=== PATIENT | female | born 2000 | race Caucasian/White ===

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

== ENCOUNTER 2021-09-19 15:11 | Emergency (ER) | payer OTHER, SELFPAY ==
--- NOTE | ~2021-09-19 | XR_ITS ---
EXAMINATION: XR chest 2V DATE: 09/19/2021 15:54 INDICATION: Midsternal two right-sided chest pain TECHNIQUE: PA and lateral views of the chest are obtained. COMPARISON: 09/30/2020 FINDINGS: The lungs are free of acute opacities. There is no pleural effusion or pneumothorax. The ca rdiomediastinal silhouette is normal. The visualized bones and soft tissues are unremarkable. IMPRESSION: 1. No acute cardiopulmonary abnormality. Reviewed, dictated and finalized at location B. OTIC PRACTITIONER
[2021-09-19 15:19] VITALS: BP 120/78; PULSE 100; RESP 16; TEMP 36.6; O2SAT 100
--- NOTE | 2021-09-19 15:23 | ECG_ITS ---
Measurements Intervals [place] Rate: 94 P: 68 [place]: 108 QRS: 78 QRSD: 92 T: 49 QT: 326 QTc: 409 Interpretive Statements SINUS RHYTHM WITH SHORT [place] INTERVAL MINIMAL Q WAVES- ANTEROLAT/INF LEADS BORDERLINE ECG Electronically Signed On 09-19-2021 16:27:38 [employer] by Darien Luna D.O.
[2021-09-19 15:42] LABS: Basophils Absolute Auto 0.1 K/mm3 (0.0-0.1); Basophils Percent Auto 0.6 % (0.2-1.2); Eosinophils Absolute Auto 0.2 K/mm3 (0-0.3); Eosinophils Percent Auto 1.8 % (0-4.4); Hematocrit 41.2 % (37.0-47.0); Hemoglobin 14.6 g/dL (12.0-15.0); Immature Granulocyte Absolute 0.04 K/mm3 (0.00-0.031); Immature Granulocyte Percent A 0.5 % (0-0.5); Lymphocytes Absolute Auto 2.55 K/mm3 (0.9-3.2); Lymphocytes Percent Auto 30.2 % (18.3-44.2); Mean Corpuscular HGB Conc 35.4 g/dl (32-36); Mean Corpuscular Hemoglobin 33.7 pg (26-34); Mean Corpuscular Volume 95.2 fl (80-100); Mean Platelet Volume 9.2 fl (7.4-10.4); Monocytes Absolute Auto 0.6 K/mm3 (0.1-0.6); Neutrophils Absolute Auto 5.1 K/mm3 (1.3-6.7); Neutrophils Percent Auto 59.9 % (45.5-73.1); Platelet Count Result 334 k/mm3 (150-375); Red Blood Count 4.33 M/mm3 (4.2-5.4); Red Cell Distribution Width 12.2 % (11.5-14.5); White Blood Count 8.4 K/mm3 (4.5-10.0)
[2021-09-19 15:57] LABS: Anion Gap 12 mmol/L (8-16); Blood Urea Nitrogen 18 mg/dL (7-17); Calcium 9.7 mg/dL (8.4-10.2); Carbon Dioxide 25 mmol/L (22-30); Chloride 104 mmol/L (98-107); Estimated CRCL calculation 123 ml/min; Estimated Glomerular Filt Rate > 60; Glucose 93 mg/dL (65-110); Potassium 3.8 mmol/L (3.4-5.0); Sodium 141 mmol/L (137-145)
--- NOTE | 2021-09-19 17:02 | ED.GENADULT ---
HPI - General Adult General Chief complaint: Chest Pain Stated complaint: chest pain, almost passing out Time Seen by Provider: 09/19/21 16:18 Source: patient and RN notes reviewed History of Present Illness HPI narrative: Patient is a 21 y/o female complaining of right sided chest pain starting 4 days ago. She rates her pain as 8/10. She states that coughing makes her pain worse. There is no pain radiation. She also has some cough and SOB. She had fever last week, but no fever for several days. Related Data Home Medications Medication Instructions Recorded Confirmed escitalopram oxalate [Lexapro] 20 mg PO DAILY 02/25/20 06/30/20 Allergies Allergy/AdvReac Type Severity Reaction Status Date / Time No Known Allergies Allergy Verified 09/19/21 16:16 Review of Systems Constitutional: Constitutional: Denies chills, Reports fever(s), Denies headache(s) and Denies weakness Eyes: Eyes: Denies blurry vision ENT: Denies headache(s) and Denies neck pain Cardiovascular: Cardiovascular: Reports chest pain and Reports dyspnea Respiratory: Respiratory: Reports cough and Reports dyspnea Gastrointestinal: Gastrointestinal: Denies abdominal pain, Denies diarrhea, Denies nausea and Denies vomiting Genitourinary: Genitourinary: Denies hematuria and Denies dysuria Musculoskeletal: Musculoskeletal: Denies back pain and Denies neck pain Neurologic: Denies headache(s) and Denies weakness PMFSH Past Medical History Medical History Anxiety Depression Surgical History Surgical History History of tonsillectomy Family History Family History Other Hypertension Social History Social History Smoking status: Never smoker Alcohol intake: current Gender identity (if verbalized by the patient): Female Exam Const: General: no acute distress and well developed Orientation/consciousness: oriented to person, oriented to place, oriented to time and patient oriented x3 HENMT: Head: normocephalic Ears: external ears normal General nose exam: Normal external nose present Eyes: General: appearance normal, both eyes and all related structures Conjunctivae: conjunctivae normal Neck: Neck: normal visual inspection and full ROM Chest: Chest palpation & inspection: normal inspection of the chest and no tenderness Resp: Effort & Inspection: normal respiratory effort Auscultation: clear to auscultation bilaterally Cardio: Rate: regular rate Rhythm: regular rhythm GI: GI Palp: No abdominal tenderness and Yes Soft to palpation Skin: General skin exam: normal color and turgor normal Neuro: General: oriented to person, oriented to place, oriented to time and patient oriented x3 Cognition (Neuro): normal cognition Extrem: General: normal to inspection, full ROM and no pedal edema Psych: Appearance: grossly normal Mental Status: mental status grossly normal Affect: normal affect Course Vital Signs Vital signs: Vital Signs Temperature 36.6 C 09/19/21 15:19 Pulse Rate 100 09/19/21 15:19 Respiratory Rate 16 09/19/21 15:19 Blood Pressure 120/78 09/19/21 15:19 Pulse Oximetry 100 09/19/21 15:19 Temperature 37.2 C 09/19/21 18:58 Pulse Rate 76 09/19/21 20:35 Respiratory Rate 18 09/19/21 20:35 Blood Pressure 117/73 09/19/21 20:35 Pulse Oximetry 100 09/19/21 20:35 Medical Decision Making Vital Signs Vital Signs: Vital Signs Temperature 36.6 C 09/19/21 15:19 Pulse Rate 100 09/19/21 15:19 Respiratory Rate 16 09/19/21 15:19 Blood Pressure 120/78 09/19/21 15:19 Pulse Oximetry 100 09/19/21 15:19 Temperature 37.2 C 09/19/21 18:58 Pulse Rate 76 09/19/21 20:35 Respiratory Rate 18 09/19/21 20:35 Blood Pressure 117/73 09/19/21 20:35 Pulse Oxime
[2021-09-19 17:33] LABS: D Dimer 0.48 ug/mL (<0.48)
[2021-09-19 17:38] LABS: Troponin I < 0.012 ng/mL (0.000-0.034)
[2021-09-19 18:58] VITALS: BP 98/56; PULSE 80; RESP 14; TEMP 37.2; O2SAT 100
[2021-09-19] MEDS: KETOROLAC 30 MG/ML VIAL (*BKC) IM (19:56)
[2021-09-19 20:08] LABS: Troponin I < 0.012 ng/mL (0.000-0.034)
[2021-09-19 20:35] VITALS: BP 117/73; PULSE 76; RESP 18; O2SAT 100
== END 2021-09-19 20:35 | disposition home or self-care (01) ==
PROVIDERS: Family Medicine; Emergency Provider Emergency Medicine; PCP Family Medicine
DX: R07.9 Chest pain, unspecified (principal); F41.9 Anxiety disorder, unspecified; F32.9 Major depressive disorder, single episode, unspecified
CPT/HCPCS: 36415; 71046; 80048; 84484; 85025; 85380; 93005; 96372; 99284; J1885

== ENCOUNTER 2023-12-21 13:59 | Emergency (ER) | payer OTHER, SELFPAY ==
--- NOTE | 2023-12-21 14:17 | ED.FEMALEGU ---
HPI - Female Genitourinary General Chief complaint: Urogenital-Female Stated complaint: urinary issue Time Seen by Provider: 12/21/23 14:45 Source: patient Mode of arrival: ambulatory Limitations: no limitations History of Present Illness HPI Narrative: Monica is a 23 year old female patient presenting to the clinic today with c/o low abdomen pain and low back pain with white odorous vaginal discharge x 1 week. Does report some discomfort with urination as well. Denies any fever or chills. Last sexual intercourse was back in September. Last menstrual period was 2 weeks ago-denies chance of . Related Data Home Medications Medication Instructions Recorded Confirmed bupropion HCl 150 mg 24 hr tablet, 150 mg PO DAILY 12/21/23 12/21/23 extended release dextroamphetamine-amphetamine ER 25 mg PO DAILY 12/21/23 12/21/23 25 mg 24hr capsule,extend release Allergies Allergy/AdvReac Type Severity Reaction Status Date / Time No Known Allergies Allergy Verified 12/21/23 14:16 Review of Systems Review of Systems: Pertinent positives per HPI. Patient denies any fever, chills, rash, headache, visual changes, dizziness, cough, shortness of breath, chest pain, palpitations, nausea, vomiting, diarrhea, constipation, or any urinary issues. [facility] Past Medical History Medical History ADHD Anxiety Depression Family planning Vaginal discharge Surgical History Surgical History History of bone marrow biopsy History of orthopedic surgery (06/11/22) left shoulder reattached bicep History of tonsillectomy Family History Family History Grandparent Breast cancer paternal grandmother & dads sister Other Cerebrovascular accident Diabetes mellitus Heart disease Hypertension Lung cancer Malignant neoplasm of prostate Pancreatic cancer Skin cancer Social History Social History Smoking status: Never smoker Alcohol intake: current Substance use: never Substance use type: marijuana Other substance usage details: occasional Lack of Transportation: No Lack of Food: Never True Current Housing: I Have Housing Concerned About Future Housing: No Difficulty Paying Gas/Electric Bills: No Difficulty Paying for Meds: No Currently Unemployed: No Education: Associate Degree Difficulty w/ Childcare or Family Care: No Living arrangements: with family Occupation/Education: occupation Additional occupation/education comments: [employer] Gender identity (if verbalized by the patient): Female Sexual Orientation (if Verbalized by the Patient): Straight or Heterosexual Comments At the time of my signature, I reviewed and agree with the nursing past medical, surgical, social, and family history. There is no relevant family history pertinent to the patient complaint. Exam Narrative: General: Well-developed, well nourished, in no apparent distress Head: Normocephalic, atraumatic. Cardio: Regular rate and rhythm, s1 and s2 normal, no murmur appreciated. Resp: Clear to auscultation bilaterally, no rhonchi, rales, wheezing or rubs. Abdomen: Soft, pliable, bowel sounds present in all quadrants, mild lower abdomen tender to palpation, no CVAT tenderness. : Pelvic exam performed with (Orly ANGULO) at bedside. Verbal consent obtained from patient. Normal external female genitalia without lesions or masses, Urinary meatus: patent without discharge, Vagina: No lesions or masses, white frothy odorous vaginal discharge in the pelvic vault Cervix: pink without mass, lesions, or tenderness. Adnexa: without palpable mass or tenderness. Course Course Emergency Course: Portions of this record may have been created with voice recognition software.
[2023-12-21 14:30] VITALS: BP 153/95; PULSE 95; RESP 16; TEMP 37.2; O2SAT 99
[2023-12-21 17:06] LABS: Trichomonas Vag PCR NOT DETECTED (NOT DETECTE)
[2023-12-21 17:31] LABS: Chlamydia trachomatis NOT DETECTED (NOT DETECTE); Neisseria gonorrhoeae PCR NOT DETECTED (NOT DETECTE)
[2023-12-24 22:08] LABS: Bacterial Vaginosis Negative (Negative)
== END 2023-12-21 15:15 | disposition home or self-care (01) ==
PROVIDERS: Emergency Provider Nurse Practitioner Family; PCP Family Medicine
DX: B37.31 Acute candidiasis of vulva and vagina (principal); F41.9 Anxiety disorder, unspecified; F32.A Depression, unspecified; F90.9 Attention-deficit hyperactivity disorder, unspecified type
CPT/HCPCS: 81003; 81513; 87070; 87491; 87591; 87661; 99214; G0463